=== PATIENT | female | born 1980 | race Caucasian/White ===

== ENCOUNTER 2020-07-29 00:44 | Emergency (ER) | payer BC ==
[~2020-07-29] VITALS: Ht 154.9 cm; Wt 70.3 kg
[~2020-07-29 00:44] MED LIST: CLARITIN10 MG PO; MULTIPLE VITAM1 EACH PO; NORCO 5-325 TA1 EACH PO; PEPCID40 MG PO; PREDNISONE 20 M20 MG PO; VISTARIL 25 MG25 M1 PO; ZYRTEC10 M2 PO
[2020-07-29 01:55] LABS: ABSOLUTE NEUTROPHILS 3.2 thou/uL (1.4-8.2); BASOPHILS 1.2 % (0.0-2.0); EOSINOPHILS 5.7 % (0.0-3.0); HEMATOCRIT 33.2 % (37.0-47.0); HEMOGLOBIN 11.4 gm/dL (12.0-15.0); MCH 30.3 pg (26.0-34.0); MCHC 34.3 g/dL (28.0-37.0); MCV 88.3 fL (80.0-100.0); MONOCYTES 10.5 % (1.0-8.0); PLATELET COUNT 319 thou/uL (150-400); POLYS 47.6 % (36.0-66.0); RBC 3.76 mil/uL (4.20-5.00); RDW 12.8 % (10.5-14.5); WBC 6.7 thou/uL (4.0-11.0)
[2020-07-29 01:58] LABS: ANION GAP 12 mmol/L (7-16); BUN 13 mg/dL (7-18); CALCIUM 9.2 mg/dL (8.5-10.1); CHLORIDE 103 mmol/L (98-107); CO2 27 mmol/L (21-32); CREATININE 0.8 mg/dL (0.6-1.0); GLUCOSE 119 mg/dL (74-106); POTASSIUM 3.3 mmol/L (3.5-5.1); SODIUM 142 mmol/L (136-145)
[2020-07-29 02:08] LABS: ALBUMIN 3.8 g/dL (3.4-5.0); SGOT 13 U/L (15-37); SGPT 18 U/L (14-59); TOTAL BILIRUBIN 0.1 mg/dL (0.2-1.0); TOTAL PROTEIN 7.5 g/dL (6.4-8.2); TROPONIN-I <0.06 ng/mL (<0.06)
[2020-07-29 05:38] VITALS: BP 100/65
--- NOTE | 2020-07-29 15:24 | EKG ---
[place] [address] [facility] [place] [address] ELECTROCARDIOGRAM REPORT Name: CRAIG WHITE Room #: DEP [place]#: [id number] Admission: 07/29/20 Attend Phys: Discharge: 07/29/20 Date of : 84 Report #: [id number] [facility] ED Test Date: 2020-07-29 Test Time: 00:56:31 Pat Name: CRAIG WHITE Department: Room: Gender: F Paraeducator: [facility] : 1980 Requested By: Alberto Ramirez Order Number: [id number] MD: Victorino Lozano Measurements Intervals [place] Rate: 84 P: 76 HI: 179 QRS: 70 QRSD: 81 T: 54 QT: 378 QTc: 447 Interpretive Statements Sinus rhythm Baseline wander in lead(s) V2 No previous ECG available for comparison Electronically Signed On 07-29-2020 15:24:29 COLUMNIST by Victorino Lozano [email or web address] <ELECTRONICALLY SIGNED> By: Victorino Lozano MD, [facility] 07/29/20 1524 0056 0056 Victorino Lozano MD, FACC /EPI
== END 2020-07-29 05:38 | disposition home or self-care (01) ==
LOC: ER 00:44
PROVIDERS: Emergency Medicine
DX: R07.89 Other chest pain (principal); R42 Dizziness and giddiness; M79.661 Pain in right lower leg; N64.4 Mastodynia; Z79.899 Other long term (current) drug therapy; Z91.013 Allergy to seafood